=== PATIENT | female | born 1985 | race Caucasian/White ===

== ENCOUNTER 2020-11-10 06:19 | Inpatient (IN) | payer OTHER, SELFPAY ==
[2020-11-10] VITALS (63 sets, daily range): BP systolic 86–183; BP diastolic 42–108; PULSE 56–276; RESP 16–18; TEMP 36.4–37; O2SAT 91–100
--- NOTE | 2020-11-10 06:46 | PM.IMHP ---
H&P: HPI History of Present Illness Date/Time: 11/10/20 06:46 Chief Complaint: htn Narrative: Fara Clinton is a 35 year old female whose last menstrual period was 02/18/2020, EDC is 11/24/2020, presents at 38 weeks gestation for induction of labor secondary to elevated blood pressures. PIH labs are being drawn the had been uncomplicated prior to that. All over pressures have been rising slowly Review of Systems Review of Systems: All systems reviewed & are unremarkable except as noted in HPI and below PMFSH Family History Family History Other Unknown family medical history Social History Social History Substance use: never Spiritual care concerns: No Meds Home Medications and Allergies Home Medications Medication Instructions Recorded Confirmed Type aspirin [Low-Dose Aspirin] 81 mg PO DAILY 10/30/20 10/30/20 History diphenhydramine HCl [Unisom 50 mg PO HS 10/30/20 10/30/20 History SleepGels] [id number] cap PO 10/30/20 History [One-A-Day -1] Allergies Allergy/AdvReac Type Severity Reaction Status Date / Time No Known Allergies Allergy Verified 10/30/20 13:40 Exam Const: General: no acute distress Eyes: General: appearance normal, both eyes and all related structures Neck: Neck: supple and no JVD Thyroid: thyroid normal Resp: Effort & Inspection: normal respiratory effort Auscultation: clear to auscultation bilaterally Cardio: Rate: regular rate Rhythm: regular rhythm GI: Inspection: non-distended GI Palp: Yes Soft to palpation, No Tenderness to palpation present (GI) and No Guarding due to palpation present (GI) Auscultation: normal bowel sounds : External Female Exam: normal external appearance Speculum Exam - Cervix: normal appearance of the cervix ( cervix 3-4 / 90/-1. AROM clear. FHTs reassuring) Skin: General skin exam: no rashes or lesions noted Extrem: General: normal to inspection and no edema Psych: Mental Status: mental status grossly normal Affect: normal affect Assessment and Plan Additional Plan impression: 38 week with elevated blood pressures Plan: Medical induction of labor. Spontaneous vaginal delivery is expected. PIH labs will be drawn. She has an epidural candidate
--- NOTE | 2020-11-10 07:35 | LDADM ---
This patient, Fara Clinton, was admitted to Labor/Delivery/Recovery 102 on 11/10/20 at 06:19. Plans for labor, pain management and were discussed with patient. Patient/family oriented to hospital policies and general routines including ID bracelet, bed and alarms, visiting hours, pain management, procedures, bathroom and other care routines, personal items, smoking policy, room service/diet and guest tray routines, infant security routines, and visiting hours. Patient/Family are encouraged to report perceived risks to care and to ask questions if they do not understand what they are told or what they should do. See OBIX for further documentation.
--- NOTE | 2020-11-10 07:49 | WPDANESEPP ---
Anes - Eval Pre Procedure Procedure: Labor epidural Date/Time: 11/10/20 07:49 Surgeon: Wild Johnston Preop Diagnosis: Abd pain with contractions Pre Op Diagnosis: Induction of Labor Patient Data Age: 35 Gender: F Height: Weight: Last Vital Signs Pulse 79 11/10/20 07:21 BP 156/100 H 11/10/20 07:21 Allergies Allergy/AdvReac Type Severity Reaction Status Date / Time No Known Allergies Allergy Verified 10/30/20 13:40 Home Medications Medication Instructions Recorded Confirmed Type aspirin [Low-Dose Aspirin] 81 mg PO DAILY 10/30/20 10/30/20 History diphenhydramine HCl [Unisom 50 mg PO HS 10/30/20 10/30/20 History SleepGels] [id number] cap PO 10/30/20 History [One-A-Day -1] : gestational age HCG: positive Patient hx anesthesia problems: none Family hx anesthesia problems: none Prior Surgeries: wisdom teeth extraction PMFSH Past Medical History Medical History Overweight or obesity Family History Family History Other Unknown family medical history Social History Social History Smoking status: Never smoker Substance use: never Spiritual care concerns: No Exam Day of Procedure 11/10/20 07:49
[2020-11-10 07:54] LABS: Basophils Absolute Auto 0.1 K/mm3 (0.0-0.1); Basophils Percent Auto 0.4 % (0.2-1.2); Eosinophils Percent Auto 0.2 % (0-4.4); Hematocrit 39.2 % (37.0-47.0); Hemoglobin 13.5 g/dL (12.0-15.0); Immature Granulocyte Absolute 0.11 K/mm3 (0.00-0.031); Immature Granulocyte Percent A 0.9 % (0-0.5); Lymphocytes Absolute Auto 2.81 K/mm3 (0.9-3.2); Lymphocytes Percent Auto 23.2 % (18.3-44.2); Mean Corpuscular HGB Conc 34.4 g/dl (32-36); Mean Corpuscular Hemoglobin 28.4 pg (26-34); Mean Corpuscular Volume 82.5 fl (80-100); Mean Platelet Volume 11.4 fl (7.4-10.4); Monocytes Absolute Auto 0.4 K/mm3 (0.1-0.6); Monocytes Percent Auto 3.6 % (2.6-8.5); Neutrophils Absolute Auto 8.7 K/mm3 (1.3-6.7); Neutrophils Percent Auto 71.7 % (45.5-73.1); Platelet Count Result 287 k/mm3 (150-375); Red Blood Count 4.75 M/mm3 (4.2-5.4); Red Cell Distribution Width 15.3 % (11.5-14.5); White Blood Count 12.1 K/mm3 (4.5-10.0)
[2020-11-10] MEDS: LACTATED RINGERS 1,000 ML 125 ML IV CONT ×2 (08:03→09:43)
[2020-11-10] MEDS: OXYTOCIN 30 UNITS/NS 500 ML 30 UNITS/500 ML BAG 6 UNITS IV CONT (08:03)
[2020-11-10 08:11] LABS: Alanine Aminotransferase 21 U/L (4-35); Albumin Level 3.5 g/dL (3.5-5.1); Alkaline Phosphatase 155 U/L (38-126); Anion Gap 8 mmol/L (8-16); Aspartate Amino Transferase 39 U/L (14-36); Bilirubin,Total 0.4 mg/dL (0.2-1.3); Blood Urea Nitrogen 15 mg/dL (7-17); Calcium 8.8 mg/dL (8.4-10.2); Carbon Dioxide 21 mmol/L (22-30); Chloride 105 mmol/L (98-107); Estimated Glomerular Filt Rate > 60; Glucose 83 mg/dL (65-105); Potassium 4.1 mmol/L (3.4-5.0); Sodium 134 mmol/L (137-145); Uric Acid 8.5 mg/dL (2.5-7.5)
[2020-11-10] MEDS: fentaNYL CITRATE INJ (*CRX) 100 MCG/2 ML VIAL 50 MCG IV PUSH (09:01)
[2020-11-10 10:38] LABS: Rapid Plasma Reagin Non-Reactive (NonReactive)
--- NOTE | 2020-11-10 11:12 | P.PNOB_ITS ---
OB - PN: Subj Subjective Date/time seen: 11/10/20 11:12 Interval history: cx 8 by rn exam fhts ok OB - PN: Obj Data Labs CBC & Chem 7: 11/10/20 07:16 11/10/20 07:16 Labs: Laboratory Results - last 24 hr 11/10/20 11/10/20 11/10/20 07:16 07:16 07:16 WBC 12.1 H RBC 4.75 Hgb 13.5 Hct 39.2 MCV 82.5 MCH 28.4 MCHC 34.4 RDW 15.3 H Plt Count 287 MPV 11.4 H Immature Gran % (Auto) 0.9 H Neut % (Auto) 71.7 Lymph % (Auto) 23.2 [place] % (Auto) 3.6 Eos % (Auto) 0.2 Baso % (Auto) 0.4 Lymph # (Auto) 2.81 [place] # (Auto) 0.4 Eos # (Auto) 0.0 Baso # (Auto) 0.1 Abs Immat Gran (auto) 0.11 H Absolute Neuts (auto) 8.7 H Absolute Nucleated RBC 0.0 Nucleated RBC % 0.0 Sodium Potassium Chloride Carbon Dioxide Anion Gap BUN Creatinine Estim Creat Clear Calc Estimated GFR Glucose Uric Acid Cancelled Calcium Total Bilirubin AST ALT Alkaline Phosphatase Total Protein Albumin RPR Non-reactive Blood Type Antibody Screen 11/10/20 11/10/20 07:16 07:16 WBC RBC Hgb Hct MCV MCH MCHC RDW Plt Count MPV Immature Gran % (Auto) Neut % (Auto) Lymph % (Auto) [place] % (Auto) Eos % (Auto) Baso % (Auto) Lymph # (Auto) [place] # (Auto) Eos # (Auto) Baso # (Auto) Abs Immat Gran (auto) Absolute Neuts (auto) Absolute Nucleated RBC Nucleated RBC % Sodium 134 L Potassium 4.1 Chloride 105 Carbon Dioxide 21 L Anion Gap 8 BUN 15 Creatinine 0.80 Estim Creat Clear Calc Not Reportable Estimated GFR > 60 Glucose 83 Uric Acid 8.5 H Calcium 8.8 Total Bilirubin 0.4 AST 39 H ALT 21 Alkaline Phosphatase 155 H Total Protein 7.0 Albumin 3.5 RPR Blood Type O Positive Antibody Screen Negative OB - PN A/P Time Spent With Patient Time: Total time spent is greater than 50% in coordination of care (as documented) at patient's floor/unit and/or counseling patient:
--- NOTE | 2020-11-10 13:16 | PM.OBPRVD ---
OB - Delivery Note Procedure Delivery date: 11/10/20 Procedure: mil/ Intrapartal events: None Induction method: AROM Delivery augmentation: pitocin Delivery monitor: external FHT Route of delivery: Episiotomy description: None Laceration Description: None Quantitative Blood Loss (ml): 158 Anesthesia type: Epidural Disposition: floor Baby Date of : 11/10/20 Time of : 13:04 Weeks of gestation at delivery: 38 gender: Male presentation: vertex position: Left Occiput Anterior Placenta delivery description: Spontaneous cord vessel description: 3 Vessels and Nuchal Cord (x 2) score one minute: 9 score five minutes: 9
[2020-11-10] MEDS: OXYTOCIN 30 UNITS/NS 500 ML 30 UNITS/500 ML BAG 125 UNITS IV CONT (13:41)
--- NOTE | 2020-11-10 14:08 | P.PNOB_ITS ---
OB - PN: Subj Subjective Date/time seen: 11/10/20 14:08 Interval history: episode of bleeding. responded to massage. qbl now 358. packing placed OB - PN: Obj Data Labs CBC & Chem 7: 11/10/20 07:16 11/10/20 07:16 Labs: Laboratory Results - last 24 hr 11/10/20 11/10/20 11/10/20 07:16 07:16 07:16 WBC 12.1 H RBC 4.75 Hgb 13.5 Hct 39.2 MCV 82.5 MCH 28.4 MCHC 34.4 RDW 15.3 H Plt Count 287 MPV 11.4 H Immature Gran % (Auto) 0.9 H Neut % (Auto) 71.7 Lymph % (Auto) 23.2 [place] % (Auto) 3.6 Eos % (Auto) 0.2 Baso % (Auto) 0.4 Lymph # (Auto) 2.81 [place] # (Auto) 0.4 Eos # (Auto) 0.0 Baso # (Auto) 0.1 Abs Immat Gran (auto) 0.11 H Absolute Neuts (auto) 8.7 H Absolute Nucleated RBC 0.0 Nucleated RBC % 0.0 Sodium Potassium Chloride Carbon Dioxide Anion Gap BUN Creatinine Estim Creat Clear Calc Estimated GFR Glucose Uric Acid Cancelled Calcium Total Bilirubin AST ALT Alkaline Phosphatase Total Protein Albumin RPR Non-reactive Blood Type Antibody Screen 11/10/20 11/10/20 07:16 07:16 WBC RBC Hgb Hct MCV MCH MCHC RDW Plt Count MPV Immature Gran % (Auto) Neut % (Auto) Lymph % (Auto) [place] % (Auto) Eos % (Auto) Baso % (Auto) Lymph # (Auto) [place] # (Auto) Eos # (Auto) Baso # (Auto) Abs Immat Gran (auto) Absolute Neuts (auto) Absolute Nucleated RBC Nucleated RBC % Sodium 134 L Potassium 4.1 Chloride 105 Carbon Dioxide 21 L Anion Gap 8 BUN 15 Creatinine 0.80 Estim Creat Clear Calc Not Reportable Estimated GFR > 60 Glucose 83 Uric Acid 8.5 H Calcium 8.8 Total Bilirubin 0.4 AST 39 H ALT 21 Alkaline Phosphatase 155 H Total Protein 7.0 Albumin 3.5 RPR Blood Type O Positive Antibody Screen Negative OB - PN A/P Time Spent With Patient Time: Total time spent is greater than 50% in coordination of care (as documented) at patient's floor/unit and/or counseling patient:
[2020-11-11 04:57] LABS: Hematocrit 28.9 % (37.0-47.0); Hemoglobin 9.9 g/dL (12.0-15.0)
--- NOTE | 2020-11-11 05:07 | PM.OBPNVD ---
OB - PN: Subj Subjective Date/time seen: 11/11/20 05:07 Interval history: episode of bleeding. responded to massage. qbl now 358. packing placed Patient comments: no complaints and pain well controlled baby status: doing well and nursing well OB - PN: Obj Data Labs CBC & Chem 7: 11/10/20 07:16 11/10/20 07:16 Labs: Laboratory Results - last 24 hr 11/10/20 11/10/20 11/10/20 07:16 07:16 07:16 WBC 12.1 H RBC 4.75 Hgb 13.5 Hct 39.2 MCV 82.5 MCH 28.4 MCHC 34.4 RDW 15.3 H Plt Count 287 MPV 11.4 H Immature Gran % (Auto) 0.9 H Neut % (Auto) 71.7 Lymph % (Auto) 23.2 [place] % (Auto) 3.6 Eos % (Auto) 0.2 Baso % (Auto) 0.4 Lymph # (Auto) 2.81 [place] # (Auto) 0.4 Eos # (Auto) 0.0 Baso # (Auto) 0.1 Abs Immat Gran (auto) 0.11 H Absolute Neuts (auto) 8.7 H Absolute Nucleated RBC 0.0 Nucleated RBC % 0.0 Sodium Potassium Chloride Carbon Dioxide Anion Gap BUN Creatinine Estim Creat Clear Calc Estimated GFR Glucose Uric Acid Cancelled Calcium Total Bilirubin AST ALT Alkaline Phosphatase Total Protein Albumin RPR Non-reactive Blood Type Antibody Screen 11/10/20 11/10/20 07:16 07:16 WBC RBC Hgb Hct MCV MCH MCHC RDW Plt Count MPV Immature Gran % (Auto) Neut % (Auto) Lymph % (Auto) [place] % (Auto) Eos % (Auto) Baso % (Auto) Lymph # (Auto) [place] # (Auto) Eos # (Auto) Baso # (Auto) Abs Immat Gran (auto) Absolute Neuts (auto) Absolute Nucleated RBC Nucleated RBC % Sodium 134 L Potassium 4.1 Chloride 105 Carbon Dioxide 21 L Anion Gap 8 BUN 15 Creatinine 0.80 Estim Creat Clear Calc Not Reportable Estimated GFR > 60 Glucose 83 Uric Acid 8.5 H Calcium 8.8 Total Bilirubin 0.4 AST 39 H ALT 21 Alkaline Phosphatase 155 H Total Protein 7.0 Albumin 3.5 RPR Blood Type O Positive Antibody Screen Negative OB - PN A/P Plan day: 1 Plan: routine care Time Spent With Patient Time: Total time spent is greater than 50% in coordination of care (as documented) at patient's floor/unit and/or counseling patient: Time with patient: less than 15 minutes Review of Systems Review of Systems: All systems reviewed & are unremarkable except as noted in HPI and below Exam Const: General: no acute distress Eyes: General: appearance normal, both eyes and all related structures Neck: Neck: supple and no JVD Thyroid: thyroid normal Resp: Effort & Inspection: normal respiratory effort Auscultation: clear to auscultation bilaterally Cardio: Rate: regular rate Rhythm: regular rhythm GI: Inspection: non-distended GI Palp: Yes Soft to palpation, No Tenderness to palpation present (GI) and No Guarding due to palpation present (GI) Auscultation: normal bowel sounds : General: Yes bladder normal to palpation External Female Exam: normal external appearance Speculum Exam - Vagina: normal vaginal discharge and No vaginal bleeding Speculum Exam - Cervix: nontender Bimanual exam- vagina & uterus: bladder normal to palpation and No Cervical tenderness present OB/external & speculum: No vaginal bleeding Skin: General skin exam: no rashes or lesions noted Extrem: General: normal to inspection and no edema Psych: Mental Status: mental status grossly normal Affect: normal affect
[2020-11-11 07:30] VITALS: RESP 16; O2SAT 99
[2020-11-11 08:05] VITALS: BP 146/87; PULSE 76; RESP 16; TEMP 37.1; O2SAT 99
--- NOTE | 2020-11-11 08:13 | WPDANLDPN2 ---
Anes-Prog Note L&D Date/Time: 11/11/20 08:13 Comfortable throughout: labor and delivery Neuraxial method: epidural Epidural/Spinal procedure site: clean & non-tender Neuro status: Neuro function grossly intact. Cardiovascular status: normal Respiratory status: normal Airway patency: baseline Mental status: baseline Post-Op hydration status: normal Vital Signs: Last Vital Signs Temp 37.0 C 11/10/20 19:52 Pulse 75 11/10/20 19:52 Resp 18 11/10/20 19:52 BP 138/74 11/10/20 19:52 Pulse Ox 100 11/10/20 19:52 Pain score (VAS): 0 Post-procedural complaints: none Patient feedback: Patient satisfied with anesthetic care.
--- NOTE | 2020-11-11 13:55 | PM.DS ---
DS: Admitting Diagnosis Admitting Diagnosis Admitting Diagnosis: term iup DS: Summary Hospital Course Hospital Course: The patient was admitted for induction of labor. She underwent an unremarkable spontaneous vaginal delivery. Her hospital course was unremarkable. She was breast feeding, voiding, passing gas, eating, in general complains Time Spent with Patient Time attestation: Total time spent providing and/or coordinating discharge services: Exam Const: General: no acute distress Eyes: General: appearance normal, both eyes and all related structures Neck: Neck: supple and no JVD Thyroid: thyroid normal Resp: Effort & Inspection: normal respiratory effort Auscultation: clear to auscultation bilaterally Cardio: Rate: regular rate Rhythm: regular rhythm GI: Inspection: non-distended GI Palp: Yes Soft to palpation, No Tenderness to palpation present (GI) and No Guarding due to palpation present (GI) Auscultation: normal bowel sounds : General: Yes bladder normal to palpation External Female Exam: normal external appearance Speculum Exam - Vagina: normal vaginal discharge and No vaginal bleeding Speculum Exam - Cervix: nontender Bimanual exam- vagina & uterus: bladder normal to palpation and No Cervical tenderness present OB/external & speculum: No vaginal bleeding Skin: General skin exam: no rashes or lesions noted Extrem: General: normal to inspection and no edema Psych: Mental Status: mental status grossly normal Affect: normal affect DS: Data Data Completed and Pending Labs on day of discharge: Labs from last 24 hours 11/11/20 04:28 Hgb 9.9 L D Hct 28.9 L Discharge Plan Discharge Attending physician on discharge: Elvin Garcia Discharging Clinician: Elvin Garcia Patient Disposition: Home, Self-Care Activity: may shower, no straining and pelvic rest Diet: heart healthy Wound Care Instructions: follow printed instructions Discharge Instructions: Education: Mom and Baby Guide Given to: Mother Follow-Up: Call your delivering provider's office for an appointment to be seen in: 6 Weeks Mom and baby should come to the [facility] for the follow-up appointment. Appointment Date/Time: November 11, 2020 at 11:00 am What to expect at your follow-up visit: Blood Pressure Check Physical Assessment Call [phone] if you are unable to keep your appointment time. BREAST CARE: * Wear a snug supportive bra. * For engorgement discomfort: Bottle Feeding: * May apply ice packs * No stimulation to breasts, even stand with back to the shower! *Usually lasts about 72 hours *Take Motrin for discomfort PERINEAL CARE: * Until bleeding stops, use your sabine bottle after urinating * Change your pad frequently throughout the day * You may take sitz baths several times a day (fill your bathtub with warm water and soak for 20 minutes.) Do NOT bathe in the water * No tub baths until seen by your physician - You may shower ACTIVITY: * Rest as much as possible. * Do not exercise or lift anything heavier than your baby (such as laundry or other children.) * Avoid stairs or driving as much as possible. * Do not put anything into the vagina. No douching, tampons, or sexual activity until seen by physician. NOTIFY PHYSICIAN IF YOU HAVE ANY QUESTIONS OR IF ANY OF THE FOLLOWING SYMPTOMS OCCUR: * If your vaginal area becomes red, swollen, or more painful than what you have experienced in the hospital. * If your vaginal bleeding becomes foul smelling. * If your vaginal bleeding becomes more heavy than a period or if your bleeding changes from pink to bright red. However, you may pass an occasional walnut-sized clot once or twice for the first week . * If you experience a sharp, shooting pain in your calves. * If you discover a hard, reddened area on your breast or if you experience flu-like symptoms. DI
[2020-11-12 11:14] VITALS: BP 149/92; PULSE 67; RESP 22; TEMP 36.8; O2SAT 100
== END 2020-11-11 14:35 | disposition home or self-care (01) | DRG 807 ==
LOC: ANHLDR 06:23 → ANHOB2 16:08
PROVIDERS: Admitting Provider Obstetrics & Gynecology; PCP Physician Assistant; Visit Provider Obstetrics & Gynecology
DX: O13.4 Gestational [pregnancy-induced] hypertension without significant proteinuria, complicating childbirth (principal); Z37.0 Single live birth; Z3A.38 38 weeks gestation of pregnancy; O69.81X0 Labor and delivery complicated by cord around neck, without compression, not applicable or unspecified
CPT/HCPCS: 36415; 80053; 84550; 85014; 85018; 85025; 86592; 86850; 86900; 86901; A9270; J2590; J2795; J3010; J7120

== ENCOUNTER 2022-11-17 05:52 | Inpatient (IN) | payer BC, SELFPAY ==
[2022-11-17] VITALS (85 sets, daily range): BP systolic 101–160; BP diastolic 47–100; PULSE 72–181; RESP 16–18; TEMP 36.5–36.9; O2SAT 95–100; BMI 37.4
--- NOTE | 2022-11-17 06:33 | PM.IMHP ---
H&P: HPI History of Present Illness Date/Time: 11/17/22 06:33 Chief Complaint: Induction of labor at term Narrative: this is a 37-year-old 2 para 1 whose last menstrual period was 03/09/2022, EDC is 11/24/2022, confirmed by 13 week ultrasound presents at 39 weeks gestation for induction of labor. She has advanced cervical dilatation of 5cm. She is negative for group B strep. She desires an epidural PMFSH Past Medical History Medical History Overweight or obesity Family History Family History Other Unknown family medical history Social History Social History Smoking status: Never smoker Substance use: never Living arrangements: with family Spiritual care concerns: No Meds Home Medications and Allergies Home Medications Medication Instructions Recorded Confirmed Type diphenhydramine HCl 50 mg capsule 50 mg PO HS 10/30/20 04/03/22 History (Unisom SleepGels) vit 168-iron 27 mg-folic 1 cap PO DAILY 10/30/20 04/03/22 History acid 800 mcg-omega3 235 mg capsule (One-A-Day -1) cranberry concentrate-ascorbic 3 cap PO DAILY 03/14/22 04/03/22 History acid 4,200 mg-20 mg capsule trazodone 50 mg tablet 50 mg PO QHS PRN Insomnia 03/14/22 04/03/22 History docusate sodium 100 mg capsule 100 mg PO DAILY 04/03/22 04/03/22 History (Colace) psyllium husk (aspartame) 3.4 3 g PO DAILY 04/03/22 04/03/22 History gram/5.8 gram oral powder (Metamucil [facility] Fiber) Allergies Allergy/AdvReac Type Severity Reaction Status Date / Time No Known Allergies Allergy Verified 04/03/22 13:54 Vital Signs Vital Signs - 24 hr 11/17/22 06:30 Pulse Oximetry 96 Exam Const: General: cooperative, healthy appearing and comfortable Nutritional Appearance: average body habitus Orientation/consciousness: oriented to person, oriented to place and oriented to time HENMT: Head: normal to inspection Resp: Effort & Inspection: normal respiratory effort Cardio: Rate: regular rate Rhythm: regular rhythm Heart sounds: S1 normal heart sound present and S2 normal heart sound present GI: Inspection: normal to inspection : Speculum Exam - Vagina: normal appearance of the vagina Speculum Exam - Cervix: normal appearance of the cervix ( 5/80/1. AROM clear. FHTs reassuring) Assessment and Plan Assessment and plan (1) Term : Code(s): Z34.90 - Encounter for supervision of normal , unspecified, unspecified trimester Status: Acute Plan medical induction of labor. She desires a epidural. Spontaneous vaginal delivery expected
--- NOTE | 2022-11-17 07:02 | LDADM ---
This patient, Fara Clinton, was admitted to Labor/Delivery/Recovery 107 on 11/17/22 at 05:52. Plans for labor, pain management and were discussed with patient. Patient/family oriented to hospital policies and general routines including ID bracelet, bed and alarms, visiting hours, pain management, procedures, bathroom and other care routines, personal items, smoking policy, room service/diet and guest tray routines, infant security routines, and visiting hours. Patient/Family are encouraged to report perceived risks to care and to ask questions if they do not understand what they are told or what they should do. See OBIX for further documentation.
[2022-11-17 07:31] LABS: Basophils Absolute Auto 0.1 K/mm3 (0.0-0.1); Basophils Percent Auto 0.4 % (0.2-1.2); Eosinophils Absolute Auto 0.1 K/mm3 (0-0.3); Eosinophils Percent Auto 0.4 % (0-4.4); Hemoglobin 12.1 g/dL (12.0-15.0); Immature Granulocyte Absolute 0.25 K/mm3 (0.00-0.031); Immature Granulocyte Percent A 1.6 % (0-0.5); Lymphocytes Absolute Auto 2.31 K/mm3 (0.9-3.2); Lymphocytes Percent Auto 14.8 % (18.3-44.2); Mean Corpuscular HGB Conc 33.6 g/dl (32-36); Mean Corpuscular Hemoglobin 28.1 pg (26-34); Mean Corpuscular Volume 83.7 fl (80-100); Mean Platelet Volume 9.3 fl (7.4-10.4); Monocytes Absolute Auto 0.4 K/mm3 (0.1-0.6); Monocytes Percent Auto 2.8 % (2.6-8.5); Neutrophils Absolute Auto 12.5 K/mm3 (1.3-6.7); Platelet Count Result 291 k/mm3 (150-375); Red Cell Distribution Width 15.8 % (11.5-14.5); White Blood Count 15.7 K/mm3 (4.5-10.0)
[2022-11-17] MEDS: OXYTOCIN 30 UNITS/NS 500 ML 30 UNITS/500 ML BAG IV CONT (08:12)
[2022-11-17] MEDS: LACTATED RINGERS 1,000 ML 125 ML IV CONT ×2 (08:13→09:53)
--- NOTE | 2022-11-17 10:47 | WPDANESEPPF ---
Anes - Initial Pre Proc Eval Procedure: labor epidural Date/Time: 11/17/22 10:47 Surgeon: Elvin Pretty MD Pre Op Diagnosis: labor pain Pre Op Diagnosis: IOL Patient Data Age: 37 Gender: F Height: 1.63 m Weight: 99 kg Last Vital Signs Pulse 74 11/17/22 10:46 BP 133/66 11/17/22 10:46 Pulse Ox 100 11/17/22 10:42 O2 Del Method Room Air 11/17/22 06:57 Allergies Allergy/AdvReac Type Severity Reaction Status Date / Time No Known Allergies Allergy Verified 04/03/22 13:54 Home Medications Medication Instructions Recorded Confirmed Type diphenhydramine HCl 50 mg capsule 50 mg PO HS 10/30/20 04/03/22 History (Unisom SleepGels) vit 168-iron 27 mg-folic 1 cap PO DAILY 10/30/20 04/03/22 History acid 800 mcg-omega3 235 mg capsule (One-A-Day -1) cranberry concentrate-ascorbic 3 cap PO DAILY 03/14/22 04/03/22 History acid 4,200 mg-20 mg capsule trazodone 50 mg tablet 50 mg PO QHS PRN Insomnia 03/14/22 04/03/22 History docusate sodium 100 mg capsule 100 mg PO DAILY 04/03/22 04/03/22 History (Colace) psyllium husk (aspartame) 3.4 3 g PO DAILY 04/03/22 04/03/22 History gram/5.8 gram oral powder (Metamucil [facility] Fiber) Laboratory Tests 11/17/22 11/17/22 11/17/22 07:22 07:22 07:22 WBC 15.7 K/mm3 H K/mm3 (4.5-10.0) RBC 4.30 M/mm3 M/mm3 (4.2-5.4) Hgb 12.1 g/dL g/dL (12.0-15.0) Hct 36.0 % L % (37.0-47.0) MCV 83.7 fl fl (80-100) MCH 28.1 pg pg (26-34) MCHC 33.6 g/dl g/dl (32-36) RDW 15.8 % H % (11.5-14.5) Plt Count 291 k/mm3 k/mm3 (150-375) MPV 9.3 fl fl (7.4-10.4) Immature Gran % (Auto) 1.6 % H % (0-0.5) Neut % (Auto) 80.0 % H % (45.5-73.1) Lymph % (Auto) 14.8 % L % (18.3-44.2) [place] % (Auto) 2.8 % % (2.6-8.5) Eos % (Auto) 0.4 % % (0-4.4) Baso % (Auto) 0.4 % % (0.2-1.2) Lymph # (Auto) 2.31 K/mm3 K/mm3 (0.9-3.2) [place] # (Auto) 0.4 K/mm3 K/mm3 (0.1-0.6) Eos # (Auto) 0.1 K/mm3 K/mm3 (0-0.3) Baso # (Auto) 0.1 K/mm3 K/mm3 (0.0-0.1) Abs Immat Gran (auto) 0.25 K/mm3 H K/mm3 (0.00-0.031) Absolute Neuts (auto) 12.5 K/mm3 H K/mm3 (1.3-6.7) Absolute Nucleated RBC 0.0 K/mm3 K/mm3 (0.0-0.012) Nucleated RBC % 0.0 % % (0.0-0.2) RPR Pending Blood Type O Positive Antibody Screen Negative Patient hx anesthesia problems: none Family hx anesthesia problems: none Results Review: All pre-operative results and documents have been reviewed as part of the pre-operative evaluation. [facility] Past Medical History Medical History Overweight or obesity Family History Family History Other Unknown family medical history Social History Social History Smoking status: Never smoker Substance use: never Lack of Transportation: No Lack of Food: Never True Current Housing: I Have Housing Concerned About Future Housing: No Difficulty Paying Gas/Electric Bills: No Difficulty Paying for Meds: No Currently Unemployed: No Education: Bachelor's Degree Difficulty w/ Childcare or Family Care: No Living arrangements: with family Spiritual care concerns: No Anes - Eval Final PreProcedure Day of Procedure 11/17/22 10:47 Patient weight: obese ASA classification: II Anesthetic plan: proceed Anesthesia type and monitoring: regional epidural and standard monitoring Results Review: All pre-operative results and documents have been reviewed as part of the pre-operative evaluation. Informed Consent: The patient's anesthetic plan and its attendant
--- NOTE | 2022-11-17 12:51 | PM.OBPRVD ---
OB - Delivery Note Procedure Delivery date: 11/17/22 Procedure: Induction of labor with Induction method: Per Pitocin Protocol Delivery augmentation: Rupture of Membranes Delivery monitor: External FHT and External Uterine Route of delivery: Laceration Description: Perineal - 1st Degree Delivery repair: vicryl (3-0) Specimen: Yes (cord blood) Quantitative Blood Loss (ml): 420 Anesthesia type: Epidural Disposition: PACU Complications: None Narrative: 37 y/o at 39 weeks gestation who presented to the hospital for induction of labor. Oxytocin was administered intravenously. Amniotomy was performed with return of clear fluid. She received an epidural for pain control. Her labor progressed and her cervix dilated completely. She pushed with good effort and delivered the 's head to the perineum, followed by the body. The nose and mouth were bulb suctioned. After a delay, the cord was clamped and cut. The infant was handed off the field. Cord blood was collected. The placenta delivered spontaneously and was grossly normal in appearance. The usual 3 vessel cord was noted. A first degree midline perineal laceration was sustained. This was reapproximated using 3 0 Vicryl in interrupted figure of eight fashion. Excellent hemostasis resulted as did excellent reapproximation of the normal anatomy. Needle and instrument counts were correct. The patient was taken to recovery room in stable condition. The infant went to the nursery in stable condition. I was present and scrubbed for the entire delivery. Baby Date of : 11/17/22 Time of : 12:33 Weeks of gestation at delivery: 39 Infant gender: Female Weight (pounds): 8 Weight (ounces): 1 presentation: vertex position: Right Occiput Anterior Placenta delivery description: Spontaneous and Normal Configuration Cord Vessel Description: 3 Vessels and Delayed Cord Clamping score one minute: 8 score five minutes: 8
--- NOTE | 2022-11-17 12:55 | PM.OBDSVD ---
DS: Admitting Diagnosis Discharge Date 11/18/22 Admitting Diagnosis IUP at 39 weeks Favorable cervix DS: Discharge Diagnosis Discharge Diagnosis (1) (normal spontaneous vaginal delivery): Code(s): O80 - Encounter for full-term uncomplicated delivery Status: Acute OB - DS: Summary OB Procedures : None OB Procedures Intrapartum: Spontaneous Vag Delivery OB Procedures: : None Time Spent with Patient Time attestation: Total time spent providing and/or coordinating discharge services: DS: Data Data Completed and Pending Labs on day of discharge: Labs from last 24 hours 11/17/22 11/17/22 11/17/22 07:22 07:22 07:22 WBC 15.7 H RBC 4.30 Hgb 12.1 Hct 36.0 L MCV 83.7 MCH 28.1 MCHC 33.6 RDW 15.8 H Plt Count 291 MPV 9.3 Immature Gran % (Auto) 1.6 H Neut % (Auto) 80.0 H Lymph % (Auto) 14.8 L [place] % (Auto) 2.8 Eos % (Auto) 0.4 Baso % (Auto) 0.4 Lymph # (Auto) 2.31 Hale # (Auto) 0.4 Eos # (Auto) 0.1 Baso # (Auto) 0.1 Abs Immat Gran (auto) 0.25 H Absolute Neuts (auto) 12.5 H Absolute Nucleated RBC 0.0 Nucleated RBC % 0.0 RPR Pending Blood Type O Positive Antibody Screen Negative Discharge Plan Discharge Attending physician on discharge: Elvin Paiz Discharging Clinician: Cornell Armas Patient Disposition: Home, Self-Care Activity: pelvic rest Diet: regular Discharge Instructions: Education: Mom and Baby Guide Given to: Mother Follow-Up: Call your delivering provider's office for an appointment to be seen in: 6 Weeks Mom and baby should come to the [facility] for the follow-up appointment. Appointment Date/Time: November 20, 2022 at 11:00 am What to expect at your follow-up visit: Blood Pressure Check Physical Assessment Call [phone] if you are unable to keep your appointment time. BREAST CARE: * Wear a snug supportive bra. * For engorgement discomfort: Breast Feeding: * Apply warm moist washcloths * Express milk as needed to relieve engorgement * Wear loose clothing Bottle Feeding: * May apply ice packs * For sore nipples: * Identify correct latch-on * Apply warm moist washcloths before and after nursing * Air dry nipples after nursing * May apply Lansinoh cream to nipples EPISIOTOMY/PERINEAL CARE: * Until bleeding stops, use your sabine bottle after urinating * Change your pad frequently throughout the day * You may take sitz baths several times a day (fill your bathtub with warm water and soak for 20 minutes.) Do NOT bathe in the water * No tub baths until seen by your physician - You may shower ACTIVITY: * Rest as much as possible. * Do not exercise or lift anything heavier than your baby (such as laundry or other children.) * Avoid stairs or driving as much as possible. * Do not put anything into the vagina. No douching, tampons, or sexual activity until seen by physician. NOTIFY PHYSICIAN IF YOU HAVE ANY QUESTIONS OR IF ANY OF THE FOLLOWING SYMPTOMS OCCUR: * If your episiotomy or incision becomes red, swollen, or more painful than what you have experienced in the hospital. * If your vaginal bleeding becomes foul smelling. * If your vaginal bleeding becomes more heavy than a period or if your bleeding changes from pink to bright red. However, you may pass an occasional walnut-sized clot once or twice for the first week . * If you experience a sharp, shooting pain in you calves. * If you discover a hard, reddened area on your breast or if you experience flu-like symptoms. DIET: * Eat regular, well-balanced meals. * Drink plenty of fluids daily. If , drink to thirst. *Call or return if temperature above 100.4? F, increased abdominal pain, increased vaginal bleeding or any new problems. Stand Alone Forms: General Discharge Information
[2022-11-17] MEDS: OXYTOCIN 30 UNITS/NS 500 ML 30 UNITS/500 ML BAG 999 UNITS IV CONT (13:25)
[2022-11-17] MEDS: WITCH HAZEL 40 PADS 1 PAD TOPICAL (14:57)
[2022-11-17] MEDS: BENZOCAINE 20% AER SPR (*SP) 56 GM CAN 1 SPRAY TOPICAL (14:57)
--- NOTE | 2022-11-17 15:15 | PC.NURSE ---
Patient transferred to post room #283 via ( w/c ). Support person present. Oriented to unit, room, information board, rooming in, admission packet and security measures. Patient verbalizes understanding.
--- NOTE | 2022-11-17 15:29 | PM.DS ---
DS: Admitting Diagnosis Discharge Date 11/17/2022 Admitting Diagnosis term DS: Discharge Diagnosis Discharge Diagnosis (1) Term : Code(s): Z34.90 - Encounter for supervision of normal , unspecified, unspecified trimester Status: Acute (2) (normal spontaneous vaginal delivery): Code(s): O80 - Encounter for full-term uncomplicated delivery Status: Acute DS: Summary Hospital Course Reason for hospitalization: patient was admitted for induction of labor at term Hospital Course: patient underwent successful spontaneous vaginal delivery on 11/17/2022. Her hospital course unremarkable. She remained afebrile. She was up, voiding without difficulty, ambulating, generally without complaints. Time Spent with Patient Time attestation: Total time spent providing and/or coordinating discharge services: Exam Const: General: cooperative, healthy appearing and comfortable Nutritional Appearance: average body habitus Orientation/consciousness: oriented to person, oriented to place and oriented to time HENMT: Head: normal to inspection Resp: Effort & Inspection: normal respiratory effort Cardio: Rate: regular rate Rhythm: regular rhythm Heart sounds: S1 normal heart sound present and S2 normal heart sound present GI: Inspection: normal to inspection ( Fundus firm below the umbilicus) DS: Data Data Completed and Pending Labs on day of discharge: Labs from last 24 hours 11/17/22 11/17/22 11/17/22 07:22 07:22 07:22 WBC 15.7 H RBC 4.30 Hgb 12.1 Hct 36.0 L MCV 83.7 MCH 28.1 MCHC 33.6 RDW 15.8 H Plt Count 291 MPV 9.3 Immature Gran % (Auto) 1.6 H Neut % (Auto) 80.0 H Lymph % (Auto) 14.8 L [place] % (Auto) 2.8 Eos % (Auto) 0.4 Baso % (Auto) 0.4 Lymph # (Auto) 2.31 [place] # (Auto) 0.4 Eos # (Auto) 0.1 Baso # (Auto) 0.1 Abs Immat Gran (auto) 0.25 H Absolute Neuts (auto) 12.5 H Absolute Nucleated RBC 0.0 Nucleated RBC % 0.0 RPR Pending Blood Type O Positive Antibody Screen Negative Discharge Plan Discharge Attending physician on discharge: Elvin Paiz Discharging Clinician: Cornell Armas Patient Disposition: Home, Self-Care Activity: pelvic rest Diet: regular Discharge Instructions: Education: Mom and Baby Guide Given to: Mother Follow-Up: Call your delivering provider's office for an appointment to be seen in: 6 Weeks Mom and baby should come to the [facility] for the follow-up appointment. Appointment Date/Time: November 20, 2022 at 11:00 am What to expect at your follow-up visit: Blood Pressure Check Physical Assessment Call [phone] if you are unable to keep your appointment time. BREAST CARE: * Wear a snug supportive bra. * For engorgement discomfort: Breast Feeding: * Apply warm moist washcloths * Express milk as needed to relieve engorgement * Wear loose clothing Bottle Feeding: * May apply ice packs * For sore nipples: * Identify correct latch-on * Apply warm moist washcloths before and after nursing * Air dry nipples after nursing * May apply Lansinoh cream to nipples EPISIOTOMY/PERINEAL CARE: * Until bleeding stops, use your sabine bottle after urinating * Change your pad frequently throughout the day * You may take sitz baths several times a day (fill your bathtub with warm water and soak for 20 minutes.) Do NOT bathe in the water * No tub baths until seen by your physician - You may shower ACTIVITY: * Rest as much as possible. * Do not exercise or lift anything heavier than your baby (such as laundry or other children.) * Avoid stairs or driving as much as possible. * Do not put anything into the vagina. No douching, tampons, or sexual activity until seen by physician. NOTIFY PHYSICIAN IF YOU HAVE ANY QUESTIONS OR IF ANY OF
[2022-11-17] MEDS: DOCUSATE SODIUM 100 MG CAPSULE PO (16:27)
[2022-11-17 16:54] LABS: Rapid Plasma Reagin Non-Reactive (NonReactive)
[2022-11-17] MEDS: SIMETHICONE 80 MG TAB.CHEW PO (19:34)
[2022-11-18 00:26] VITALS: BP 139/88; PULSE 79; RESP 18; TEMP 36.5; O2SAT 99
[2022-11-18 04:00] VITALS: BP 107/58; PULSE 68; RESP 18; TEMP 36.7; O2SAT 99
[2022-11-18 05:34] LABS: Hemoglobin 10.6 g/dL (12.0-15.0)
[2022-11-18] MEDS: IBUPROFEN 600 MG TABLET PO (08:33)
[2022-11-18] MEDS: DOCUSATE SODIUM 100 MG CAPSULE PO (08:34)
[2022-11-18 08:40] VITALS: BP 122/66; PULSE 65; RESP 18; TEMP 36.7; O2SAT 100
--- NOTE | 2022-11-18 09:10 | WPDANLDPN2 ---
Anes-Prog Note L&D Date/Time: 11/18/22 09:10 Comfortable throughout: labor and delivery Neuraxial method: epidural Epidural/Spinal procedure site: clean & non-tender Neuro status: Neuro function grossly intact. Cardiovascular status: normal Respiratory status: normal Airway patency: baseline Mental status: baseline Post-Op hydration status: normal Vital Signs: Last Vital Signs Temp 36.7 C 11/18/22 04:00 Pulse 68 11/18/22 04:00 Resp 18 11/18/22 04:00 BP 107/58 L 11/18/22 04:00 Pulse Ox 99 11/18/22 04:00 O2 Del Method Room Air 11/17/22 15:15 Pain score (VAS): 0 I/O: Intake & Output 11/17/22 11/18/22 11/18/22 23:59 07:59 15:59 Intake Total 240 Balance 240 Post-procedural complaints: none Patient feedback: Patient satisfied with anesthetic care.
--- NOTE | 2022-11-18 12:00 | PC.NURSE ---
Patient viewed the discharge video Mother & Baby Care, The First Two Weeks . Patient was given the opportunity and encouraged to ask questions. Patient verbalized understanding of information shared and has been given the mother/baby guide for home reference.
--- NOTE | 2022-11-18 12:16 | PM.OBPNVD ---
OB - PN: Subj Subjective Date/time seen: 11/18/22 12:16 Narrative: Pain OK. Would like to go home. OB - PN: Obj Data Labs 11/18/22 04:35 Labs: Laboratory Results - last 24 hr 11/17/22 11/18/22 07:22 04:35 Hgb 10.6 L Hct 32.0 L RPR Non-reactive OB - PN A/P Plan Comments: A: PPD#1, doing well. P: Home to f/u 6 weeks. Exam Psych: Other: AVSS ABD soft, nontender, fundus firm EXT nontender
[2022-11-20 11:13] VITALS: BP 132/82; PULSE 72; RESP 18; TEMP 36.7; O2SAT 100
== END 2022-11-18 14:25 | disposition home or self-care (01) | DRG 807 ==
LOC: ANHLDR 12:56 → ANHOB2 15:24
PROVIDERS: Obstetrics & Gynecology; Admitting Provider Obstetrics & Gynecology; PCP Physician Assistant; Visit Provider Obstetrics & Gynecology
DX: O70.0 First degree perineal laceration during delivery (principal); Z37.0 Single live birth; Z3A.39 39 weeks gestation of pregnancy
CPT/HCPCS: 36415; 85014; 85018; 85025; 86592; 86850; 86900; 86901; A9270; J2590; J2795; J7120

== ENCOUNTER 2023-02-13 15:07 | Outpatient (CLI) | payer BC, SELFPAY ==
--- NOTE | ~2023-02-13 | US_ITS ---
EXAMINATION: US breast LT limited HISTORY: Subareolar left breast pain TECHNIQUE: Limited left breast ultrasound is performed. FINDINGS: There is no evidence of focal abnormal cystic or solid mass in the vicinity of the patient' s reported left breast pain. IMPRESSION: No specific sonographic correlate is identified for the patient's reported left breast pain. Further evaluation at this time should be based on clinical assessment. Continued follow-up physical examinat ion is recommended. BI-RADS Category 1: Negative Reviewed, dictated and finalized at location A. IMPRESSION: No specific sonographic correlate is identified for the patient's reported left breast pain. Further evaluation at this time should be based on clinical asses sment. Continued follow-up physical examination is recommended. BI-RADS Category 1: Negative
== END 2023-02-13 15:08 | disposition home or self-care (01) ==
PROVIDERS: PCP Physician Assistant; Visit Provider Obstetrics & Gynecology
DX: N64.4 Mastodynia (principal)
CPT/HCPCS: 76642